=== PATIENT | female | born 1975 | race Caucasian/White ===

== ENCOUNTER 2017-08-14 08:57 | Outpatient (CLI) | payer MEDICARE, BC | END 2017-08-14 08:58 | disposition home or self-care (01) | LOC: BICMAMMO 08:57 | PROVIDERS: ATTEND Family Medicine | DX: Z12.31 Encounter for screening mammogram for malignant neoplasm of breast (principal) | CPT/HCPCS: 77063; 77067 ==

== ENCOUNTER 2018-12-17 15:17 | Outpatient (CLI) | payer MEDICARE, BC ==
--- NOTE | 2018-12-17 15:56 | MMO ---
Bilateral MAMMO Bilat Screen DDI+FABIOLA. CLINICAL HISTORY: Patient is 43 years old and is seen for screening. The patient has no family history of breast cancer. The patient has no personal history of cancer. VIEWS: The views performed were: bilateral craniocaudal with tomosynthesis and bilateral mediolateral oblique with tomosynthesis. FILMS COMPARED: The present examination has been compared to prior imaging studies performed at [facility] on 11/14/2011, 04/15/2015, 04/19/2015, 06/20/2016 and 08/14/2017. MAMMOGRAM FINDINGS: There are scattered fibroglandular densities. There are no suspicious masses, suspicious calcifications, or new areas of architectural distortion. IMPRESSION: THERE IS NO MAMMOGRAPHIC EVIDENCE OF MALIGNANCY. A ROUTINE FOLLOW-UP MAMMOGRAM IN 1 YEAR IS RECOMMENDED. THE RESULTS OF THIS EXAM WERE SENT TO THE PATIENT. ACR BI-RADS Category 1 - Negative MAMMOGRAPHY NOTE: 1. A negative mammogram report should not delay a biopsy if a dominant of clinically suspicious mass is present. 2. Approximately 10% to 15% of breast cancers are not detected by mammography. 3. Adenosis and dense breasts may obscure an underlying neoplasm.
== END 2018-12-17 15:18 | disposition home or self-care (01) ==
LOC: BICMAMMO 15:17
PROVIDERS: ATTEND Family Medicine
DX: Z12.31 Encounter for screening mammogram for malignant neoplasm of breast (principal)
CPT/HCPCS: 77063; 77067

== ENCOUNTER 2019-03-19 09:57 | Outpatient (CLI) | payer MEDICARE, BC ==
--- NOTE | 2019-03-19 11:19 | RAD ---
CHEST TWO VIEWS: History: Cough. Abnormal lung sounds. Comparison: None FINDINGS: Normal cardiac silhouette. Atherosclerosis of the aortic knob. The pulmonary vessels are within katy l limits. Costophrenic angles are clear. There are bilateral increased interstitial opacities which m ay be due to edema or infiltrate. There is no pneumothorax or osseous abnormalities. IMPRESSION: Increased bilateral perihilar interstitial opacities which may be due to edema or infiltrate. Better interrogation with chest CT is recommended. Code T POS: OFF
== END 2019-03-19 09:58 | disposition home or self-care (01) ==
LOC: BICRAD 09:57
PROVIDERS: ATTEND Family Medicine
DX: R05 Cough (principal); R09.89 Other specified symptoms and signs involving the circulatory and respiratory systems; R91.8 Other nonspecific abnormal finding of lung field
CPT/HCPCS: 71046

== ENCOUNTER 2019-04-29 08:57 | Outpatient (CLI) | payer MEDICARE, BC ==
--- NOTE | 2019-04-29 10:24 | CT ---
CT CHEST WITHOUT CONTRAST: Date: 04/29/19 PROVIDED CLINICAL HISTORY: Hemoptysis. FINDINGS: Comparison made with study dated 03/31/19. The heart, pericardium, and great vessels are suboptimally evaluated in the absence of IV contrast ma terial. Minimal vascular calcification is seen. There is evidence for an enlarged subcarinal lymph node measuring about 1.7 cm in short axis. No fidelia tional thoracic lymph node enlargement is evident with limitations due to lack of IV contrast materia l. The airway appears patent and of normal caliber. There is a small right pleural effusion and trace left pleural fluid. There is interval development of multifocal parenchymal consolidation admixed with the areas of previ ously described predominantly perihilar peribronchovascular ground-glass opacity. More confluent cons olidation in the region of previously described right middle lobe abnormality. There is no evidence f or interstitial thickening. No cystic change or nodularity is apparent. The visualized portions of the upper abdomen demonstrate an unremarkable unenhanced CT appearance. The osseous structures demonstrate no concerning lytic or blastic lesions. IMPRESSION: Progressive bilateral lung consolidation as described. Given the provided clinical history of hemopty sis, this presumably reflects diffuse pulmonary hemorrhage. Differential considerations would include pulmonary vasculidities and Goodpasture syndrome, among other etiologies. Pulmonary edema, pulmonary infection, and pulmonary inflammation could also be considered. POS: OFF
== END 2019-04-29 08:58 | disposition home or self-care (01) ==
LOC: CT 08:57
PROVIDERS: ATTEND Internal Medicine Critical Care Medicine
DX: R04.2 Hemoptysis (principal)
CPT/HCPCS: 71250

== ENCOUNTER 2019-04-29 14:19 | Inpatient (IN) | payer MEDICARE, BC ==
[2019-04-29 15:23] VITALS: BMI 38.5
[2019-04-29 16:15] LABS: Hemoglobin 11.6 g/dL (12.0-16.0); Mean Corpuscular HGB CONC 34.4 g/dL (32.0-36.0); Mean Corpuscular Volume 98.7 fL (78.0-98.0); Platelet Count 226 thou/uL (130-400); RBC Distribution Width 12.6 % (11.5-14.5); Red Blood Cell (RBC) Count 3.41 mill/uL (4.20-5.40); White Blood Cell (WBC) Count 8.4 thou/uL (4.8-10.8)
[2019-04-29 16:31] LABS: Band 9 % (5-11); Eosinophils 5 % (0-10); Lymphocytes 29 % (21-51); MDiff Complete? YES; Monocytes 2 % (0-10); Myelocyte 1 % (0-0); Neutrophil 50 % (42-75); Platelet Morphology Comment Appears Adequate; Polychromasia SLIGHT = 2-3 cells (100X) (0-2/hpf); Reactive Lymphocytes 3 % (0-10)
[2019-04-29 16:53] LABS: HIV (1/2) Antibody/Antigen Non-Reactive (NonReactive); HIV 1/2 INDEX 0.08 S/CO (<1.00)
[2019-04-29] MEDS ORDERED: Sodium Chloride 0.9% 1,000 ML IV SCH (18:00)
[2019-04-29 18:58] LABS: EliA Vaculitis New Method **** NEW METHOD ****; Glomerular Basemt Membrane Ab Less than 1.9 EliAU/mL (<7 Negative)
--- NOTE | 2019-04-29 18:58 | CON ---
DATE OF CONSULTATION: 04/29/2019 REASON FOR CONSULTATION: Evaluate the patient with bilateral interstitial lung changes for open lung biopsy. HISTORY OF PRESENT ILLNESS: Ms. Alexander is a 44-year-old woman with Down syndrome. She has had shortness of breath and a cough for a period of time. She recently has worsened and had some hemoptysis over the weekend. She had a CT scan of her chest performed, which shows in comparison to the previous CT scan, worsening interstitial changes bilaterally, right more so than the left. She saw Dr. Leija today, who has admitted her to the hospital. He has planned a bronchoscopy and at the same time, we will make plans for open thoracoscopic lung biopsies on the right. Currently, she is asymptomatic, having no chest pain, shortness of breath, or other symptomatology. PAST MEDICAL HISTORY: Hypothyroidism. PAST SURGICAL HISTORY: None. CURRENT MEDICATIONS: Thyroid replacement. ALLERGIES: NONE. SOCIAL HISTORY: She works at [employer] and has worked there for 25 years. She does not use tobacco. She is . PHYSICAL EXAMINATION: GENERAL: This is a well-developed, well-nourished woman, resting comfortably in bed. VITAL SIGNS: Her heart rate is 70 and regular and blood pressure is 130/72. LUNGS: Clear bilaterally. HEART: Rhythm is regular. ABDOMEN: Soft and nontender. EXTREMITIES: No edema. ASSESSMENT AND PLAN: This is a 44-year-old woman with bilateral interstitial lung changes, which have worsened over the last month with cough and hemoptysis. PLAN: For bronchoscopy followed by thoracoscopic lung biopsy on the right. I have discussed the plans with she and her father and they are agreeable for us to proceed. Job ID: [id number]
[2019-04-29] MEDS ORDERED: Bacteriostatic Water 30 ML VIAL FS PRN (20:28)
[2019-04-29] MEDS ORDERED: methylPREDNISolone Sod Succ/PF 125 MG/2 ML VIAL IVP SCH (20:30)
[2019-04-29] MEDS ORDERED: Doxycycline 100 MG in Syringe 0 ML IVPB SCH (21:00)
[2019-04-29] MEDS: Famotidine 20 MG TAB PO SCH (22:27)
[2019-04-30] MEDS: Diabetic Tussin 200 MG/10 ML UDCUP PO PRN (03:43)
--- NOTE | 2019-04-30 07:52 | HP ---
DATE: 04/29/2019 HISTORY OF PRESENT ILLNESS: Shaila Alexander is a very pleasant 44-year-old female , who works for a [employer]. She has Down syndrome. She had a mild intermittent cough and had a CAT scan with Dr. Perez and was referred to me. She has no history of cardiac or reflux disease. She denies shortness of breath. I reviewed her CT. This showed hazy increase in interstitial markings in her upper lobes medially and in her right middle lobe. I felt the findings were nonspecific and since she was asymptomatic, I recommended that we repeat a CAT scan in 6 months. She came in yesterday saying that she coughed up blood. PAST MEDICAL HISTORY: Remarkable for; 1. Hypothyroidism, on replacement. 2. History of partial hysterectomy in 1994. SOCIAL HISTORY: She is nonsmoker and nondrinker. ALLERGIES: SHE HAS NO DRUG ALLERGIES. FAMILY HISTORY: Non contributory. REVIEW OF SYSTEMS: Ten-point review of systems completed, other than a brief period of hemoptysis a few days back, it was negative. PHYSICAL EXAMINATION: GENERAL: Shaila Alexander is a very pleasant 44-year-old female. VITAL SIGNS: Her pulse is 86, respiratory rate 18. Oximetry is 91% to 92%, down from 97% when I met her on April 13. HEENT: She has Down's facial features. HEENT exam is otherwise unremarkable. LUNGS: Remarkable for faint crackles at her right lung base. HEART: Regular rhythm. S1 and S2 are normal. ABDOMEN: Soft and nontender. EXTREMITIES: Without clubbing, cyanosis, or edema. NEUROLOGIC: Nonfocal. IMAGING STUDIES: Repeated a chest CT today, which shows progression of these abnormalities. They are patchy alveolar, interstitial, and nodular. On last visit, I did a sedimentation rate, which was 35, upper limits is 20. Her angiotensin converting enzyme was normal and neutrophil cytoplasmic antibody was negative, both the cAnca and pANCA. There is no atypical pANCA. Her LUCY screen was negative. Her double-stranded DNA was normal. Her rheumatoid factor was negative. IMPRESSION: Progressive patchy interstitial and alveolar infiltrates. I think the best way to make an accurate and prompt diagnosis would be to schedule her for fiberoptic bronchoscopy and thoracoscopic lung biopsy, hopefully in the morning. We would try to do both procedures at the same time. Hopefully with thoracoscopic lung biopsy, we will get enough tissue and this will help us better identify what the problem is. I doubt this is tuberculosis. She has no reason to have nontuberculous mycobacterium. She really has no reason to have a fungal infection. I suppose she could have a seronegative vasculitis. There is no occupational history. I doubt this is hypersensitivity pneumonitis. Given the clinical and radiographic progression, combined with some alveolar hemorrhage based on her history of hemoptysis, I would wonder more about a vasculitis, given that she is 44 years of age. Hopefully, we can send the specimens for culture and for pathology and probably, we will need to send the pathology to [facility] with a CT to a lung pathologist. This is a 70 min. H & P greater than 50% was spent on the unit with coordination of care. Job ID: [id number] MTDD
[2019-04-30] MEDS: Famotidine 20 MG TAB PO SCH ×2 (08:27→20:36)
[2019-04-30] MEDS: Enoxaparin Sodium 40 MG/0.4 ML SYRINGE SC SCH (08:28)
[2019-04-30] MEDS: methylPREDNISolone Sod Succ/PF 125 MG/2 ML VIAL IVP SCH (09:27)
[2019-04-30] MEDS ORDERED: Bupivacaine HCl 0.5%/Epinephrine 1:200,000/PF 30 ml Vial ONE (11:03)
[2019-04-30] MEDS ORDERED: Lidocaine 2% Jelly 5 ML TUBE ONE (11:59)
[2019-04-30] MEDS ORDERED: Fentanyl 250 MCG/5 ML VIAL ONE (11:59)
[2019-04-30] MEDS ORDERED: CEFAZOLIN 2 GM in Premix Bag 1 BAG IVPB SCH ×2 (12:00→18:00)
[2019-04-30] MEDS ORDERED: Ketorolac Tromethamine 30 MG/ML VIAL IVP PRN (14:04)
[2019-04-30] MEDS ORDERED: Promethazine HCl 25 MG/ML VIAL SLOW IVP PRN (14:04)
[2019-04-30] MEDS ORDERED: Ondansetron HCl/PF 4 MG/2 ML Vial IVP PRN (14:04)
[2019-04-30] MEDS ORDERED: Promethazine HCl 25 MG/ML VIAL IM PRN (14:04)
[2019-04-30] MEDS ORDERED: Fentanyl 100 MCG/2 ML VIAL ONE (14:08)
[2019-04-30] MEDS ORDERED: Ketorolac Tromethamine 30 MG/ML VIAL ONE (14:08)
[2019-04-30] MEDS ORDERED: Glycopyrrolate 0.2 MG/ML 5 ML SYRINGE ONE (14:23)
[2019-04-30] MEDS ORDERED: PROPOFOL 200 MG/20 ML VIAL ONE (14:23)
[2019-04-30] MEDS ORDERED: Ondansetron PF 4 MG/2 ML Vial ONE (14:23)
[2019-04-30] MEDS ORDERED: Rocuronium Bromide 10 MG/ML (10ML VIAL) ONE (14:23)
[2019-04-30] MEDS ORDERED: Lidocaine 1% PF 5 ML VIAL ONE (14:23)
[2019-04-30] MEDS ORDERED: Dexamethasone 20 MG/5 ML VIAL ONE (14:23)
[2019-04-30] MEDS ORDERED: ePHEDrine 50 MG/ML VIAL ONE (14:23)
[2019-04-30 15:27] LABS: BF Color Pink; Body Fluid Source Bronchial Washings; Clarity Cloudy/Turbid (Clear)
[2019-04-30 15:28] LABS: Tube # EDTA
[2019-04-30 15:31] LABS: BF RBC Count - Manual 2751 /cumm; BF WBC/Nonhematics Ct. - Manua 1485 /cumm
--- NOTE | 2019-04-30 15:34 | RAD ---
CHEST 1 VIEW: Date: 04/30/19 COMPARISON: CT done yesterday and PA and lateral chest performed 03/19/19. HISTORY: Post thoracoscopy. FINDINGS: The patchy alveolar lung changes appear fairly similar as compared to the previous CT study. A right chest tube is now in place, no signs for pneumothorax. IMPRESSION: Right sided chest tube placement. No signs of pneumothorax. Fairly stable overall appearance to the a lveolar lung changes. POS: ROSSANA
[2019-04-30 15:39] LABS: BF Segmented Neutrophils 54 %; Cell Count Non Hematic 25 %; Eosinophils 7 %; Lymphocytes 11 %
[2019-04-30] MEDS ORDERED: traMADol HCl 50 MG TAB PO PRN (15:42)
[2019-04-30] MEDS ORDERED: Fentanyl 100 MCG/2 ML VIAL SLOW IVP PRN (15:42)
[2019-04-30] MEDS: CEFAZOLIN 2 GM in Premix Bag 1 BAG IVPB SCH (20:35)
--- NOTE | 2019-04-30 20:44 | OP ---
DATE OF PROCEDURE: 04/30/2019 PREOPERATIVE DIAGNOSIS: Bilateral infiltrative disease of lungs. POSTOPERATIVE DIAGNOSIS: Bilateral infiltrative disease of lungs. PROCEDURE PERFORMED: Right thoracoscopy with wedge biopsies of the middle and lower lobes. ANESTHESIA: General endotracheal. ESTIMATED BLOOD LOSS: Minimal. DRAINS: 20-Romanian chest tube x1. SPECIMENS: Right middle lobe and right lower lobe wedge specimens for pathology, bacterial and fungal cultures. DESCRIPTION OF PROCEDURE: After consent was obtained, the patient was brought to the operating room, placed in supine position on the operating table. Appropriate central line and monitor were placed and general endotracheal anesthesia was induced. Flexible fiberoptic bronchoscopy was used to position the endotracheal tube. The patient was placed in the left lateral decubitus position. Joints were appropriately padded. SCDs were used. Right chest wall was prepped and draped in usual sterile fashion. Three port incisions were made along the sixth interspace. The thoracoscope was inserted through the port. The middle and lower lobes were elevated. Wedge resection was made of both middle and lower lobes. These were sent for the above specimens. A 20-Romanian chest tube was placed through our anterior port site. Lung was re-expanded and filled the chest cavity nicely. Port sites were closed after being infiltrated with 0.5% Marcaine. The patient was awakened, extubated, and transferred to the recovery room in stable condition. Needle, sponge, and instrument counts were all reported as correct at the end of the procedure. Job ID: [id number]
[2019-05-01] MEDS: CEFAZOLIN 2 GM in Premix Bag 1 BAG IVPB SCH ×2 (03:27→12:46)
[2019-05-01] MEDS: Levothyroxine Sodium 100 MCG TAB PO SCH (05:51)
[2019-05-01] MEDS ORDERED: Levothyroxine 175 MCG TAB PO SCH (06:00)
[2019-05-01] MEDS: methylPREDNISolone Sod Succ/PF 125 MG/2 ML VIAL IVP SCH (08:09)
[2019-05-01] MEDS: Enoxaparin Sodium 40 MG/0.4 ML SYRINGE SC SCH (08:09)
[2019-05-01] MEDS: Famotidine 20 MG TAB PO SCH ×2 (08:09→21:35)
--- NOTE | 2019-05-01 08:48 | OP ---
DATE OF PROCEDURE: 04/30/2019 DESCRIPTION OF PROCEDURE: Shaila Alexander was taken to the operating suite. She was identified. She was intubated by Anesthesia. With an 8.[address], a fiberoptic bronchoscope was placed in the tracheobronchial tree. The main elizabeth was sharp. Left lower lobe, left upper lobe, right lower lobe, right middle lobe, right upper lobe were visualized. No endobronchial lesions were seen. We were using a large suction port, so I could barely get the scope wedged into the right middle lobe, but I was able to do a 60 mL lavage. The last 2 aliquots of lavage fluid were pink. She tolerated the procedure well. The case was then turned over the cardiothoracic surgeon for thoracoscopy. I met with the family and checked on her in her room after surgery and she actually looked pretty good considering. She had minimal complaints of chest discomfort. She does not like the PlexiPulses. We will continue with low-dose Lovenox for now. I am concerned that she may have an alveolar hemorrhage syndrome. Hopefully, biopsies, as well as all the specimens, cultures, cell count, stains for hemosiderin and cytology will be helpful. It is extremely unlikely this is malignant process and in her age group, I think it more likely for this to be some type of autoimmune process or alveolar hemorrhage syndrome. She does not have microhematuria by urinalysis done recently, so it is unlikely to be a pulmonary renal syndrome, the serology has been sent. Her antiglomerular basement membrane was less than 1.9. Her HIV as expected was nonreactive. The cell count for the lavage was 2751 red cells, 1485 white cells, 54% neutrophils, 11% lymphocytes, and 7% eosinophils. All the other special stains are pending. I met with the mother and the father and her and answered all of her questions. Job ID: [id number]
--- NOTE | 2019-05-01 09:00 | PRG ---
DATE OF SERVICE: 05/01/2019 SUBJECTIVE: Shaila Alexander is doing well. Her chest tubes have been removed. Bronchial cultures from bronchoscopy are pending. Biopsy cultures are negative so far. She is on doxycycline. She is on IV Medrol 80 mg once a day. OBJECTIVE: VITAL SIGNS: Room air sat is 82 this morning. LUNGS: Distant and clear. HEART: Regular rhythm. ABDOMEN: Soft. IMPRESSION: ?alveolar hemorrhage syndrome. We are awaiting pathology. Continue with empiric IV steroids and antimicrobial therapy to cover for atypicals. She had received Ceftin prior to admission for hemoptysis. We will continue to follow. She will likely remain in the hospital till early next week. Hopefully, her gas exchange will start gradually improving. Job ID: [id number]
--- NOTE | 2019-05-01 12:18 | PQF ---
MIKE OWENS THOMAS MD [id number] CLINICAL DOCUMENTATION IMPROVEMENT CLARIFICATION FORM: ICD-10 Updated PLEASE DO AN ADDENDUM TO THE PROGRESS NOTE WITH ANY DOCUMENTATION UPDATES OR ADDITIONS AND CARRY THROUGH TO DC SUMMARY. THANK YOU. DATE: 05/01/2019 ATTN:DR. DRAKE Please exercise your independent, professional judgment in responding to the clarification form. Clinical indicators are provided on the bottom of this form for your review. Please check appropriate box(s): [ ] Acute Respiratory Failure: [ ] with Hypoxia[ ] with Hypercapnia [ ] Acute On Chronic Respiratory Failure: [ ] with Hypoxia [ ] with Hypercapnia [ ] Acute Respiratory Failure due to: (etiology) [ ] Chronic Respiratory Failure only [ ] with Hypoxia [ ] with Hypercapnia [ ] Hypoxia [ ] Other diagnosis [ ] Unable to determine In addition, please specify: Present on Admission (POA): [ ] Yes [ ] No [ ] Unable to determine For continuity of documentation, please document condition throughout progress notes and discharge summary. Thank You. CLINICAL INDICATORS - SIGNS / SYMPTOMS / LABS 04/29 H&P (AMELIE) SHE HAS A MILD INTERMITTENT COUGH AND A HAD A CAT SCAN WITH DR. CORONADO AND WAS REFERRED TO ME. CT SHOWED HAZY INCREASE IN INTERSTITIAL MARKINGS IN HER UPPER LOBES MEDIALLY AND IN HER RIGHT MIDDLE LOBE 04/29 CONSULT(MARIIA) SHE HAS HAD SHORTNESS OF BREATH AND AH COUGH FOR A PERIOD OF TIME. SHE RECENTLY HAS WORSENED AND HAD SOME HEMOPTYSIS OVER THE WEEKEND. SHE HAD A CT SCAN OF HER CHEST PERFORMED WHICH SHOWS IN COMPARISON TO THE PREVIOUS CT SCAN WORSENING INTERSTITIAL CHANGES BILATERALLY, RIGHT MORE SO THAN LEFT. RISK: BILATERAL INTERSTITIAL LUNG DISEASE (CHIANG/04/29 PN) HX DOWN SYNDROME (KINSEY/PN/04/29) TREATMENTS: SUPPLEMENTAL OXYGEN (04/29-PRESENT) BRONCHOSCOPY/ LUNG BIOPSY (04/30) REFERRAL TO DIE TRIMMER (AMELIE 04/29) THANK YOU! ANGELIA (This form is maintained as a part of the permanent medical record) 2014 [employer]. All Rights Reserved [email or web address] [phone] [facility] HOSPITALIvett
[2019-05-01] MEDS: Diabetic Tussin 200 MG/10 ML UDCUP PO PRN (21:35)
[2019-05-02] MEDS: Levothyroxine Sodium 100 MCG TAB PO SCH (05:39)
[2019-05-02] MEDS: Famotidine 20 MG TAB PO SCH ×2 (09:13→21:20)
[2019-05-02] MEDS: methylPREDNISolone Sod Succ/PF 125 MG/2 ML VIAL IVP SCH (09:13)
--- NOTE | 2019-05-02 11:52 | PRG ---
DATE OF SERVICE: 05/02/2019 SUBJECTIVE: Patient had hypoxemia last night when flat, was better when sitting up today. OBJECTIVE: VITAL SIGNS: Today she is about 98% on 2 L at rest, temperature 96.8, pulse 67, respirations 16, O2 saturation 97% on 4 L. HEENT: Unremarkable. NECK: No adenopathy or JVD. LUNGS: Clear anteriorly. CARDIAC: S1, S2. Regular. ABDOMEN: Soft. EXTREMITIES: No edema. Her pathology looks like bronchoalveolar hemorrhage syndrome. ASSESSMENT: 1. Bronchoalveolar hemorrhage, which seems to be responding to the antibiotics and steroids. 2. I would suspect the nocturnal desaturation is related to obstructive sleep apnea as most patients with Downs eventually developed NELIDA. This will need to be worked up as an outpatient with a sleep study when she is over the acute lung injury. PLAN: Continue steroids and antibiotics. Hopefully home Saturday. Job ID: [id number]
[2019-05-02] MEDS: Enoxaparin Sodium 40 MG/0.4 ML SYRINGE SC SCH (17:26)
[2019-05-03] MEDS: Levothyroxine Sodium 100 MCG TAB PO SCH (06:07)
[2019-05-03] MEDS: methylPREDNISolone Sod Succ/PF 125 MG/2 ML VIAL IVP SCH (10:33)
[2019-05-03] MEDS: Famotidine 20 MG TAB PO SCH ×2 (10:34→20:41)
[2019-05-03] MEDS: Enoxaparin Sodium 40 MG/0.4 ML SYRINGE SC SCH (10:43)
--- NOTE | 2019-05-03 12:20 | PRG ---
DATE OF SERVICE: 05/03/2019 SUBJECTIVE: The patient is doing reasonably well, had no acute complaints. She wants to walk around. OBJECTIVE: VITAL SIGNS: Temperature 97.8, pulse , respirations 16, O2 saturation 92% on 2 L, blood pressure 109/56. HEENT: Unremarkable. NECK: No adenopathy or JVD. CHEST: Clear. CARDIAC: S1 and S2. Regular. ABDOMEN: Soft. 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 PLAN: Continue current therapy. Hopefully, able to go home tomorrow, if okay with Dr. Leija. Job ID: [id number]
[2019-05-04] MEDS: Levothyroxine Sodium 100 MCG TAB PO SCH (06:12)
[2019-05-04] MEDS: Enoxaparin Sodium 40 MG/0.4 ML SYRINGE SC SCH (10:22)
[2019-05-04] MEDS: Famotidine 20 MG TAB PO SCH (10:29)
[2019-05-04] MEDS: methylPREDNISolone Sod Succ/PF 125 MG/2 ML VIAL IVP SCH (10:29)
[2019-05-04 13:17] VITALS: BP 146/65; TEMP 98.3
[2019-05-04 23:07] LABS: L.pneumophilia Abs <0.91 OD ratio (0.00-0.90)
--- NOTE | 2019-05-05 03:15 | DIS ---
DATE OF ADMISSION: 04/29/2019 DATE OF DISCHARGE: 05/04/2019 DISCHARGE DIAGNOSES: 1. Alveolar hemorrhage syndrome. 2. Down syndrome. HOSPITAL COURSE: Ms. Alexander was admitted with progressive interstitial and alveolar infiltrates over the course of 3 weeks. She started to have hemoptysis. She was scheduled for thoracoscopic lung biopsy as well as fiberoptic bronchoscopy with lavage. She underwent this on the day following admission. Lavage revealed progressively pinker aliquots of lavage affluent. She also had surgical lung biopsy. Preliminary report suggests that this is an alveolar hemorrhage syndrome with abundant hemosiderin-laden macrophages. Lung pathology with a CT scan of her chest was to be sent to the [facility] for a second opinion. She is discharged on 40 of prednisone a day, doxycycline 100 mg twice a day and she will follow up with me by phone next week to check and see if the results come back from the [facility]. She will stay on 40 mg a day for at least 2 weeks, perhaps longer depending on the pathology. She is clinically improved rapidly. She is hypoxic on Saturday and about today, her oximetry was in the mid 90s on room air. She is deemed stable for discharge. I met with the mother and answered all of her questions. Job ID: [id number]
[2019-05-05 10:12] LABS: Fungus Stain Final report (.)
[2019-05-05 10:12] LABS: Fungus Stain Final report (.)
[2019-05-05 10:12] LABS: Fungus Stain Final report (.)
[2019-05-05 17:09] LABS: A. flavus Negative (Neg:<1:1); A. fumigatus Negative (Neg:<1:1); A. niger Negative (Neg:<1:1); Blastomyces AB Negative (Neg:<1:1)
[2019-05-05 23:07] LABS: Mycoplasma pneumoniae IgG AB 1675 U/mL (0-99); Mycoplasma pneumoniae IgM AB Less than 770 U/mL (0-769)
[2019-05-06 08:12] LABS: Aspergillus fumigatus Negative (Negative); Aureobasidium pullalans IgG Negative (Negative); Micropolyspora faeni Negative (Negative); Pigeon Droppings IgG Negative (Negative); T sacchari Negative (Negative); T vulgaris Negative (Negative)
== END 2019-05-04 13:15 | disposition home or self-care (01) | DRG 168 ==
LOC: ONC 14:56
PROVIDERS: ADMIT Internal Medicine Critical Care Medicine; ATTEND Internal Medicine Critical Care Medicine
PROC: 0BD58ZX Extraction of Right Middle Lobe Bronchus, Via Natural or Artificial Opening Endoscopic, Diagnostic (ICD-10-PCS; 2019-04-30)
PROC: 0BBJ4ZX Excision of Left Lower Lung Lobe, Percutaneous Endoscopic Approach, Diagnostic (ICD-10-PCS; principal; 2019-05-01)
PROC: 0BBD4ZX Excision of Right Middle Lung Lobe, Percutaneous Endoscopic Approach, Diagnostic (ICD-10-PCS; 2019-05-01)
DX: R04.89 Hemorrhage from other sites in respiratory passages (principal); E03.9 Hypothyroidism, unspecified; G47.33 Obstructive sleep apnea (adult) (pediatric); Q90.9 Down syndrome, unspecified; Z90.710 Acquired absence of both cervix and uterus
CPT/HCPCS: 36415; 71045; 71250; 83516; 85007; 85027; 85060; 86331; 86602; 86606; 86612; 86635; 86671; 86698; 86713; 87070; 87102; 87116; 87205; 87206; 87389; 88112; 88305; 88307; 88312; 88313; 89051; 93005; 93010; J0670; J0690; J1100; J1650; J1885; J2001; J2405; J2704; J2930; J3010; J3490

== ENCOUNTER 2019-05-09 17:34 | Emergency (ER) | payer MEDICARE, BC ==
[2019-05-09 20:26] LABS: #Lymphocytes 2.1 thou/uL (1.20-3.40); #Monocytes 0.2 thou/uL (0.11-0.59); #Neutrophils 10.4 thou/uL (1.40-6.50); %Basophils 0.3 % (0.0-1.0); %Eosinophils 0.2 % (0.0-10.0); %Lymphocytes 16.5 % (21.0-51.0); %Monocytes 1.2 % (0.0-10.0); %Neutrophils 81.8 % (42.0-75.0); Hemoglobin 14.4 g/dL (12.0-16.0); Mean Corpuscular HGB CONC 33.2 g/dL (32.0-36.0); Mean Corpuscular Hemoglobin 33.5 pg (27.0-31.0); Mean Platelet Volume 7.4 fL (7.4-10.4); Platelet Count 356 thou/uL (130-400); RBC Distribution Width 13.6 % (11.5-14.5); White Blood Cell (WBC) Count 12.8 thou/uL (4.8-10.8)
--- NOTE | 2019-05-09 20:40 | RAD ---
TWO VIEW CHEST: 05/09/19 HISTORY: Follow-up lung biopsy. Correlation made to chest CT of 04/29/19 which showed diffuse bilateral nodular infiltrates. Compariso n made to portable chest, 04/30/19, which showed right chest tube and numerous bilateral infiltrates. On today's exam, the lungs are better aerated. The chest tube has been removed. There continues to be interstitial and hazy alveolar infiltrates in the right. The left lung infiltrates have significantl y improved. No pneumothorax. No significant effusion. IMPRESSION: Persistent right lung interstitial and hazy alveolar infiltrates although the chest findings have imp roved. POS: OFF
[2019-05-09 20:49] LABS: ALT (SGPT) 18 U/L (8-55); AST (SGOT) 11 U/L (5-34); Albumin 3.7 g/dL (3.5-5.0); Alkaline Phosphatase 86 U/L (40-110); Anion Gap 15 mmol/L (10-20); BUN (Urea Nitrogen) 18 mg/dL (7.0-18.7); Bilirubin, Total 0.3 mg/dL (0.2-1.2); Calc. Creatinine Clearance 0 mL/min (70-130); Carbon Dioxide 27 mmol/L (22-29); Chloride 99 mmol/L (98-107); Estimated GFR-MDRD 67; Globulin 3.4 g/dL (2.4-3.5); Glucose 196 mg/dL (70-105); Potassium 4.2 mmol/L (3.5-5.1); Protein, Total 7.1 g/dL (6.0-8.3); Sodium 137 mmol/L (136-145)
== END 2019-05-09 21:53 | disposition home or self-care (01) ==
LOC: ERS 17:34
DX: I97.89 Other postprocedural complications and disorders of the circulatory system, not elsewhere classified (principal); D72.829 Elevated white blood cell count, unspecified; E03.9 Hypothyroidism, unspecified
CPT/HCPCS: 36415; 71046; 80053; 85025; 87070; 87205

== ENCOUNTER 2019-05-23 09:16 | Emergency (ER) | payer MEDICARE, BC ==
[2019-05-23 09:52] LABS: #Basophils 0.1 thou/uL (0.0-0.2); #Eosinphils 0.1 thou/uL (0.0-0.7); #Lymphocytes 2.2 thou/uL (1.20-3.40); #Monocytes 0.4 thou/uL (0.11-0.59); #Neutrophils 12.3 thou/uL (1.40-6.50); %Basophils 0.3 % (0.0-1.0); %Eosinophils 0.5 % (0.0-10.0); %Lymphocytes 14.8 % (21.0-51.0); %Monocytes 2.4 % (0.0-10.0); Hemoglobin 14.8 g/dL (12.0-16.0); Mean Corpuscular HGB CONC 32.9 g/dL (32.0-36.0); Mean Corpuscular Hemoglobin 33.6 pg (27.0-31.0); Mean Platelet Volume 7.4 fL (7.4-10.4); Platelet Count 256 thou/uL (130-400); RBC Distribution Width 14.3 % (11.5-14.5); Red Blood Cell (RBC) Count 4.43 mill/uL (4.20-5.40)
[2019-05-23 10:12] LABS: ALT (SGPT) 23 U/L (8-55); AST (SGOT) 14 U/L (5-34); Albumin 3.6 g/dL (3.5-5.0); Alkaline Phosphatase 78 U/L (40-110); Anion Gap 15 mmol/L (10-20); BUN (Urea Nitrogen) 22 mg/dL (7.0-18.7); Bilirubin, Total 0.7 mg/dL (0.2-1.2); Calc. Creatinine Clearance 0 mL/min (70-130); Calcium 9.2 mg/dL (7.8-10.44); Carbon Dioxide 25 mmol/L (22-29); Chloride 99 mmol/L (98-107); Estimated GFR-MDRD 62; Globulin 3.1 g/dL (2.4-3.5); Glucose 165 mg/dL (70-105); Potassium 3.2 mmol/L (3.5-5.1); Protein, Total 6.7 g/dL (6.0-8.3); Sodium 136 mmol/L (136-145)
[2019-05-23 10:16] LABS: Bacteria/HPF None Seen HPF (None Seen); Bilirubin Negative (Negative); Blood, Urine Negative (Negative); Calcium Oxalate Crystals 2+ HPF (None Seen); Clarity Clear (Clear); Glucose, Urine (Dipstick) Normal (Negative); Leukocyte 250 Leu/uL (Negative); Mucous/LPF Rare LPF (<2+); Nitrite Negative (Negative); Protein, Urine (Dipstick) 10 mg/dL (Neg-Trace); RBC/HPF 0-3 HPF (0-3); Squamous Epithelial 0-3 HPF (0-3); Urobilinogen Normal mg/dL (Less than 2)
[2019-05-23] MEDS ORDERED: cefTRIAXone\\ROCEPHIN 2 GM VIAL ONE (10:50)
--- NOTE | 2019-05-23 11:20 | CT ---
CTA CHEST WITH CONTRAST: Axial tomograms, multiplanar reconstruction, and 3D postprocessing. INDICATION: Syncope. Shortness of breath. FINDINGS: There is adequate opacification of the pulmonary arteries; however, artifact limits the evaluation of the peripheral pulmonary arteries. There is no evidence of pulmonary embolus seen to the segmental level. Review of the lungs revealed diffuse bilateral somewhat nodular alveolar infiltrates. These are seen throughout the right lung involving all lobes of the right lung. They are more pronounced in the le ft upper lobe with minimal involvement of the left lower lobe. Mediastinum unremarkable. Thoracic aorta unremarkable. Visualized upper abdomen unremarkable. IMPRESSION: 1. No evidence of proximal pulmonary embolus. 2. Bilateral nodular alveolar infiltrates suggesting an atypical infectious process. Findings are s een throughout all lobes of the right lung and are seen in the left upper lobe. POS: [facility]
[2019-05-23] MEDS ORDERED: ISOVUE-370 76%-LOCM 1 ML ONE (12:35)
== END 2019-05-23 11:50 | disposition home or self-care (01) ==
LOC: ERS 09:16
DX: J18.9 Pneumonia, unspecified organism (principal); N39.0 Urinary tract infection, site not specified; R55 Syncope and collapse; E03.9 Hypothyroidism, unspecified
CPT/HCPCS: 36415; 71275; 80053; 81003; 81015; 82550; 84484; 85025; 87040; 87086; 93005; 96361; 96365; J0696

== ENCOUNTER 2019-06-11 09:17 | Outpatient (CLI) | payer MEDICARE, BC ==
--- NOTE | 2019-06-11 09:30 | RAD ---
EXAM: Chest PA and lateral: HISTORY: Dyspnea COMPARISON: 05/09/2019 FINDINGS: Heart: Normal cardiac silhouette Aorta: Unremarkable Pulmonary vessels: Normal Costophrenic angles: Costophrenic angles are clear. Lungs: Chronic changes of the lung parenchyma. Suture chain in the mid right lung is redemonstrated. Pneumothorax: No pneumothorax Osseous structures: No osseous abnormalities IMPRESSION: 1. Stable postsurgical change in the right hemithorax. 2. Chronic changes along parenchyma.
== END 2019-06-11 09:18 | disposition home or self-care (01) ==
LOC: RAD 09:17
PROVIDERS: ATTEND Internal Medicine Critical Care Medicine
DX: R06.00 Dyspnea, unspecified (principal); J98.4 Other disorders of lung; Z98.890 Other specified postprocedural states
CPT/HCPCS: 71046

== ENCOUNTER 2019-07-14 10:00 | Outpatient (CLI) | payer MEDICARE, BC ==
--- NOTE | 2019-07-14 11:26 | CT ---
CT CHEST WITHOUT CONTRAST: HISTORY: Pneumonia. Followup. COMPARISON: CT pulmonary angiogram of 05/23/2019. CT chest without contrast of 04/29/2019. FINDINGS: A small right pleural effusion is again seen. There has been interval improvement in the patchy areas of consolidation noted on the previous study. There are patchy ground glass infiltrates in the lower lung lucero. No pericardial effusion or left sided pleural effusion is identified. No pneumothoraces are noted. There is a questionable calculus in the visualized portion of the gallbladder. IMPRESSION: Interval improvement since 05/23/2019. POS: [facility]
== END 2019-07-14 10:01 | disposition home or self-care (01) ==
LOC: BICCT 10:00
PROVIDERS: ATTEND Internal Medicine Critical Care Medicine
DX: J69.0 Pneumonitis due to inhalation of food and vomit (principal)
CPT/HCPCS: 71250

== ENCOUNTER 2019-07-20 09:13 | Outpatient (CLI) | payer MEDICARE, BC ==
--- NOTE | 2019-07-21 12:02 | RAD ---
Modified barium swallow HISTORY: Pneumonitis due to inhalation of food or vomiting. FINDINGS: Exam was performed by speech pathology with multiple consistencies. Video review is availab le and demonstrates good bolus formation and retropulsion. Good initiation of swallowing. Minimal penetration with straw sips. Very small amount of residue with good clearance upon secondary swallowi ng. No evidence of aspiration. The esophagus below the level of the hypopharynx was not evaluated. Fluoroscopy time 38 seconds. Please see separate detailed report from speech pathology.
== END 2019-07-20 09:14 | disposition home or self-care (01) ==
PROVIDERS: ATTEND Family Medicine
DX: J69.0 Pneumonitis due to inhalation of food and vomit (principal)
CPT/HCPCS: 74230

== ENCOUNTER 2020-02-23 09:03 | Outpatient (CLI) | payer MEDICARE, BC ==
--- NOTE | 2020-02-23 11:58 | CT ---
CHEST CT WITHOUT CONTRAST: HISTORY: Pneumonia follow-up. COMPARISON: 07/14/2019. 05/23/2019. 04/29/2019. FINDINGS: Lower neck and axilla: No masses or lymphadenopathy. Mediastinum: Limited evaluation by lack of IV contrast. No mass, lymphadenopathy, or hematoma. Heart: Upper normal heart size. No significant pericardial fluid. Subdiaphragmatic structures: No acute abnormality. Trachea and central bronchi: Patent. Pleural spaces: Interval resolution of previously noted right-sided pleural effusion. Pneumothorax: None. Right lung: Stable postsurgical change with suture chain along the superior segment of the right low er lobe. There are patchy ground-glass opacities likely representing edema. Previously noted alveolar opacities in May and April 2019 have essentially resolved. No new infiltrate. Left lung: Patchy ground-glass opacities similar to the most recent previous exam. Correlate for ashish koenig. Previously noted alveolar infiltrates in May and April 2019 have essentially resolved. No lytic or blastic lesions in the osseous structures. IMPRESSION: 1. Stable postsurgical change superior segment right lower lobe. 2. Patchy ground-glass opacities throughout the lung parenchyma, likely representing edema. 3. Previously noted alveolar infiltrates have essentially resolved. POS: [facility]
== END 2020-02-23 09:04 | disposition home or self-care (01) ==
LOC: BICCT 09:03
PROVIDERS: ATTEND Internal Medicine Critical Care Medicine
DX: J18.9 Pneumonia, unspecified organism (principal); R91.8 Other nonspecific abnormal finding of lung field; Z98.890 Other specified postprocedural states
CPT/HCPCS: 71250

== ENCOUNTER 2020-11-16 08:52 | Outpatient (CLI) | payer MEDICARE, BC | END 2020-11-16 08:53 | disposition home or self-care (01) | LOC: BICMAMMO 08:52 | PROVIDERS: ATTEND Family Medicine | DX: Z12.31 Encounter for screening mammogram for malignant neoplasm of breast (principal) | CPT/HCPCS: 77063; 77067 ==

== ENCOUNTER 2021-07-12 09:32 | Outpatient (CLI) | payer MEDICARE, BC | END 2021-07-12 09:33 | disposition home or self-care (01) | LOC: BICCT 09:32 | PROVIDERS: ATTEND Internal Medicine Critical Care Medicine | DX: J18.9 Pneumonia, unspecified organism (principal) | CPT/HCPCS: 71250 ==

== ENCOUNTER 2021-12-12 10:05 | Outpatient (CLI) | payer MEDICARE, BC | END 2021-12-12 10:06 | disposition home or self-care (01) | LOC: BICMAMMO 10:05 | PROVIDERS: ATTEND Family Medicine | DX: Z12.31 Encounter for screening mammogram for malignant neoplasm of breast (principal) | CPT/HCPCS: 77063; 77067 ==

== ENCOUNTER 2022-04-30 09:50 | Outpatient (CLI) | payer MEDICARE, BC | END 2022-04-30 09:51 | disposition home or self-care (01) | LOC: RAD 09:50 | PROVIDERS: ATTEND Internal Medicine Critical Care Medicine | DX: R06.09 Other forms of dyspnea (principal) | CPT/HCPCS: 71046 ==

== ENCOUNTER 2022-07-17 09:31 | Outpatient (CLI) | payer MEDICARE, BC | END 2022-07-17 09:32 | disposition home or self-care (01) | LOC: CT 09:31 | PROVIDERS: ATTEND Internal Medicine Critical Care Medicine | DX: J69.0 Pneumonitis due to inhalation of food and vomit (principal); I51.7 Cardiomegaly; R91.1 Solitary pulmonary nodule | CPT/HCPCS: 71250 ==

== ENCOUNTER 2023-03-20 08:45 | Outpatient (CLI) | payer MEDICARE, BC | END 2023-03-20 08:46 | disposition home or self-care (01) | LOC: BICMAMMO 08:45 | PROVIDERS: ATTEND Family Medicine | DX: Z12.31 Encounter for screening mammogram for malignant neoplasm of breast (principal); M81.0 Age-related osteoporosis without current pathological fracture; M85.89 Other specified disorders of bone density and structure, multiple sites | CPT/HCPCS: 77063; 77067; 77080 ==

== ENCOUNTER 2023-07-02 12:47 | Outpatient (CLI) | payer MEDICARE, BC | END 2023-07-02 12:48 | disposition home or self-care (01) | LOC: BICCT 12:47 | PROVIDERS: ATTEND Internal Medicine Critical Care Medicine | DX: J69.0 Pneumonitis due to inhalation of food and vomit (principal); K22.9 Disease of esophagus, unspecified; R91.1 Solitary pulmonary nodule | CPT/HCPCS: 71250 ==

== ENCOUNTER 2024-01-09 13:08 | Outpatient (CLI) | payer MEDICARE | END 2024-01-09 13:09 | disposition home or self-care (01) | LOC: MRI 13:08 | PROVIDERS: ATTEND Family Medicine | DX: M54.2 Cervicalgia (principal); M54.50 Low back pain, unspecified; M47.812 Spondylosis without myelopathy or radiculopathy, cervical region; M47.813 Spondylosis without myelopathy or radiculopathy, cervicothoracic region; M47.816 Spondylosis without myelopathy or radiculopathy, lumbar region; M47.815 Spondylosis without myelopathy or radiculopathy, thoracolumbar region; M47.817 Spondylosis without myelopathy or radiculopathy, lumbosacral region | CPT/HCPCS: 72141; 72148 ==

== ENCOUNTER 2024-05-08 14:26 | Outpatient (CLI) | payer MEDICARE | END 2024-05-08 14:27 | disposition home or self-care (01) | LOC: BICMAMMO 14:26 | PROVIDERS: ATTEND Family Medicine | DX: N64.89 Other specified disorders of breast (principal); R92.8 Other abnormal and inconclusive findings on diagnostic imaging of breast; N63.20 Unspecified lump in the left breast, unspecified quadrant | CPT/HCPCS: 76642; 77065; G0279 ==

== ENCOUNTER 2024-07-14 14:08 | Outpatient (CLI) | payer MEDICARE | END 2024-07-14 14:09 | disposition home or self-care (01) | LOC: RAD 14:08 | PROVIDERS: ATTEND Internal Medicine Critical Care Medicine | DX: R06.00 Dyspnea, unspecified (principal) | CPT/HCPCS: 71046 ==

== ENCOUNTER 2025-07-15 13:29 | Outpatient (CLI) | payer MEDICARE | END 2025-07-15 13:30 | disposition home or self-care (01) | LOC: RAD 13:29 | PROVIDERS: ATTEND Internal Medicine Critical Care Medicine | DX: R06.00 Dyspnea, unspecified (principal) | CPT/HCPCS: 71046 ==